=== PATIENT | female | born 1980 | race Caucasian/White ===

== ENCOUNTER 2018-05-14 11:57 | Emergency (ER) | payer MEDICAID ==
[~2018-05-14] VITALS: Ht 165.1 cm; Wt 109.3 kg
[2018-05-14 12:03] VITALS: BP 141/84
[2018-05-14] MEDS ORDERED: ketorolac tromethamine 15mg/ml inj. IM ONE (13:05)
[2018-05-14] MEDS ORDERED: IBUP-1985 PO (13:14)
== END 2018-05-14 13:40 | disposition home or self-care (01) ==
LOC: ER 11:58
DX: M79.671 Pain in right foot (principal)
CPT/HCPCS: 29540; 73630; 96372; 99284; J1885